=== PATIENT | male | born 1960 | race Caucasian/White ===

== ENCOUNTER 2016-06-30 12:01 | Day surgery (SDC) | payer BC ==
[2016-06-30] MEDS ORDERED: NS 1,000 ML IV ONE (12:12)
[2016-06-30] MEDS ORDERED: ASPIRIN EC 325 MG TAB PO ONE ×2 (12:12→12:45)
[2016-06-30] MEDS ORDERED: FAMOTIDINE 20 MG TAB PO ONE (12:12)
[2016-06-30] MEDS ORDERED: diphenhydrAMINE 25 MG CAP PO ONE ×2 (12:12→12:45)
[2016-06-30] MEDS ORDERED: DIAZEPAM 5 MG TAB PO ONE (12:12)
[2016-06-30] MEDS ORDERED: LIDOCAINE 1% 30 ML SDV ONE (12:29)
[2016-06-30] MEDS ORDERED: HEPARIN 10,000 UNIT/10 ML MDV ONE (12:30)
[2016-06-30] MEDS ORDERED: MIDAZOLAM 2 MG/2 ML VIAL ONE (12:30)
[2016-06-30] MEDS ORDERED: VERAPAMIL 5 MG/2 ML VIAL ONE (12:30)
[2016-06-30] MEDS ORDERED: fentaNYL 100 MCG/2 ML INJ ONE (12:30)
[2016-06-30] MEDS ORDERED: IOPAMIDOL (ISOVUE 370) 100 ML BTL IV ONE (12:31)
[2016-06-30] MEDS ORDERED: DIAZEPAM 5 MG TAB ONE (12:45)
[2016-06-30] MEDS ORDERED: FAMOTIDINE 20 MG TAB ONE (12:45)
--- NOTE | 2016-06-30 12:48 | CPEKG ---
Heart Rate: 77 RR Interval: 779 P-R Interval: 200 QRSD Interval: 92 QT Interval: 404 QTC Interval: 458 P [place]: 2 QRS [place]: -50 T Wave [place]: -26 EKG Severity - ABNORMAL ECG - EKG Impression: SINUS RHYTHM EKG Impression: LEFT ANTERIOR FASCICULAR BLOCK EKG Impression: ABNORMAL T, CONSIDER ISCHEMIA, INFERIOR LEADS Electronically Signed By: Lázaro Bernabe 01-Jul-2016 16:40:55
[2016-06-30 12:53] LABS: % IMMATURE GRANULYOCYTES 0.3 % (0.0-1.1); ABSOLUTE IMMATURE GRANULOCYTES 0.03 10^3/uL (0.00-0.10); ADD DIFF? NO; ADD MORPH? NO; ADD SCAN? NO; ATYPICAL LYMPHOCYTE FLAG 0 (0-99); FRAGMENT RBC FLAG 0 (0-99); HEMATOCRIT 47.1 % (40.0-51.0); LEFT SHIFT FLG 0 (0-99); LIPEMIA HEMOLYSIS FLAG 90 (0-99); MEAN CELL HEMOGLOBIN 35.8 pg (27.9-34.1); MEAN CELL HEMOGLOBIN CONCENTR. 36.1 g/dL (32.4-36.7); MEAN CELL VOLUME 99.2 fL (81.5-99.8); PLATELET CLUMPS FLAG 0 (0-99); PLATELET COUNT 174 10^3/uL (150-400); RED BLOOD CELL COUNT 4.75 10^6/uL (4.40-6.38); RED CELL DISTRIBUTION WIDTH 12.2 % (11.5-15.2)
[2016-06-30 13:07] LABS: ANION GAP 9 mEq/L (8-16); CALCIUM 9.1 mg/dL (8.5-10.4); CARBON DIOXIDE 27 mEq/l (22-31); CHLORIDE 104 mEq/L (97-110); CHOLESTEROL 94 mg/dL (140-220); CHOLESTEROL/HDL RATIO 1.65 RATIO (1.00-4.97); CREATININE 0.8 mg/dL (0.7-1.3); GLOMERULAR FILTRATION RATE > 60; GLUCOSE 149 mg/dL (70-100); HIGH DENSITY LIPOPROTEIN 57 mg/dL (40-65); LDL/HDL RATIO 0.51 RATIO (1.00-3.64); LOW DENSITY LIPOPROTEIN 29 mg/dL (80-100); MAGNESIUM 1.8 mg/dL (1.6-2.3); NON-HIGH DENSITY LIPOPROTEIN 37 mg/dL (90-129); POTASSIUM 4.6 mEq/L (3.5-5.2); SODIUM 140 mEq/L (134-144); TRIGLYCERIDE 43 mg/dL (40-150); VERY LOW DENSITY LIPOPROTEINS 8 mg/dL (8-25)
[2016-06-30 13:08] LABS: INR 1.09 (0.83-1.16)
--- NOTE | 2016-06-30 14:23 | PDDXCAT ---
Diagnostic Cath Note - . Date: 06/30/16 Family Law Attorney: Bryan Indication: CCC Class III and IV angina on medical treatment High-risk criteria on non-invasive testing: stress-induced large perfusion defect (particularly if anterior) - Procedure Access: right wrist Procedure: left heart catheterization, coronary angiography, left ventriculogram - Materials Left Heart Cath materials: JL3.5, JR4.0, pigtail - Findings-Left Heart Catheterization LM: Large caliber vessel. Trifurcate into left anterior descending, ramus intermedius and circumflex vessels. LAD: Long segment of stenting noted in the proximal vessel. Several small diagonal branches identified. Luminal irregularities with no obstructive lesions. LCX: Non dominant. 2 obtuse marginal branches and 1 posterior lateral branch. Luminal irregularities with no obstructive lesions. RCA: Dominant. Luminal irregularities with no obstructive lesions. Heavily calcified ostium. EDP: 137/15/20 mmHg. LVEF: 60-65%. Wall motion: Normal wall motion. - Findings-Right Heart Catheterization AO: 133/79/101 mmHg. Complications: None. Estimated blood loss: <50ml Closure method: TR Band Assessment: Previously stented LAD which is currently widely patent. No interval development of additional obstructive lesions. Diffuse luminal irregularities. Preserved left ventricular systolic function without wall motion abnormalities. No significant identified valvular heart disease. Likely false-positive myocardial perfusion imaging study. Plan: Maximal medical therapy for secondary prevention. Intervention: None.
== END 2016-06-30 18:27 | disposition home or self-care (01) ==
LOC: FCATH 12:01
PROVIDERS: ATTEND Internal Medicine Cardiovascular Disease
PROC: B2151ZZ Fluoroscopy of Left Heart using Low Osmolar Contrast (ICD-10-PCS; principal; 2016-06-30)
PROC: 4A023N7 Measurement of Cardiac Sampling and Pressure, Left Heart, Percutaneous Approach (ICD-10-PCS; principal; 2016-06-30)
PROC: B2111ZZ Fluoroscopy of Multiple Coronary Arteries using Low Osmolar Contrast (ICD-10-PCS; principal; 2016-06-30)
DX: R00.2 Palpitations (principal); R42 Dizziness and giddiness; R06.02 Shortness of breath; R94.31 Abnormal electrocardiogram [ECG] [EKG]; R94.39 Abnormal result of other cardiovascular function study; I25.10 Atherosclerotic heart disease of native coronary artery without angina pectoris; J44.9 Chronic obstructive pulmonary disease, unspecified; I10 Essential (primary) hypertension; E11.9 Type 2 diabetes mellitus without complications; K21.9 Gastro-esophageal reflux disease without esophagitis; E78.00 Pure hypercholesterolemia, unspecified; M19.90 Unspecified osteoarthritis, unspecified site; I73.00 Raynaud's syndrome without gangrene; I25.2 Old myocardial infarction; Z72.0 Tobacco use; Z95.818 Presence of other cardiac implants and grafts
CPT/HCPCS: J1644; J2250; J3010; Q9967